=== PATIENT | female | born 1970 | race Caucasian/White ===

== ENCOUNTER 2016-11-21 12:50 | Emergency (ER) | payer OTHER ==
[~2016-11-21] VITALS: Ht 157.5 cm; Wt 81.6 kg
[~2016-11-21 12:50] MED LIST: FLE10 PO; HYDROCHLOROTH12.5 M2 PO; KCL 10% 2020 MEQ/15 GT; KCL20L PO; METFORMIN HCL500 MG PO; METOPROLOL SUCC50 M1 PO; MOBIC15 MG PO; OYSCO 500500 M1 PO; VITAMIN D32000 I2 PO
[2016-11-21 15:56] LABS: UA SPECIFIC GRAVITY 1.025 (1.005-1.035); microscopic required? YES; urine erythrocyte TRACE (NEGATIVE)
[2016-11-21 16:12] LABS: BASOPHIL % 0.6 % (0-2); PLATELET COUNT 238 x10^3mcL (130-400); RED CELL DISTRIBUTION WIDTH 14.2 % (11.5-14.5)
[2016-11-21 16:26] LABS: CALCIUM 8.5 mg/dL (8.5-10.1); CARBON DIOXIDE 26.9 mmol/L (21-32); CREATININE SERUM 1.1 mg/dL (0.6-1.0)
[2016-11-21 16:30] LABS: ALBUMIN 3.5 g/dL (3.4-5.0); BILIRUBIN TOTAL 0.4 mg/dL (0.20-1.00); CHOLESTEROL/HDL RATIO 4.4; FREE T4 0.8 ng/dL (0.76-1.46); FREE THYROXINE INDEX 2.5 ug/dL (1.4-4.5); T4(THYROXINE) 8.2 ug/dL (4.7-13.3); TOTAL PROTEIN, SERUM 7.2 g/dL (6.4-8.2)
[2016-11-21 16:36] LABS: T3 TOTAL 1.23 ng/mL
[2016-11-21 18:05] VITALS: BP 134/78
== END 2016-11-21 18:05 | disposition home or self-care (01) ==
LOC: ED 12:50
PROVIDERS: Specialist
DX: R10.31 Right lower quadrant pain (principal); R19.7 Diarrhea, unspecified; R11.0 Nausea; E11.9 Type 2 diabetes mellitus without complications; I10 Essential (primary) hypertension; Z79.84 Long term (current) use of oral hypoglycemic drugs; Z88.2 Allergy status to sulfonamides
CPT/HCPCS: 83880; 84439; J1885; J2405; J3010; J7030

== ENCOUNTER 2017-03-18 22:06 | Emergency (ER) | payer OTHER ==
[2017-03-18 22:54] LABS: BASOPHIL % 0.8 % (0-2); PLATELET COUNT 204 x10^3mcL (130-400); RED CELL DISTRIBUTION WIDTH 14.4 % (11.5-14.5)
[2017-03-18 23:07] LABS: CARBON DIOXIDE 25.7 mmol/L (21-32); CHLORIDE SERUM 107 mmol/L (98-107); CREATININE SERUM 0.8 mg/dL (0.6-1.0); GFR1 > 60 mL/min; GLUCOSE SERUM 98 mg/dL (74-106); POTASSIUM SERUM 4.3 mmol/L (3.5-5.1); SODIUM SERUM 144 mmol/L (136-145)
[2017-03-18 23:12] LABS: ALBUMIN 3.6 g/dL (3.4-5.0); ALKALINE PHOSPHATASE 82 U/L (46-116); ALT/SGPT 30 U/L (14-59); AST/SGOT 23 U/L (15-37); BILIRUBIN TOTAL 0.42 mg/dL (0.20-1.00); TOTAL PROTEIN, SERUM 7.4 g/dL (6.4-8.2)
[2017-03-19 01:15] VITALS: BP 140/90
== END 2017-03-19 01:15 | disposition home or self-care (01) ==
LOC: ED 22:06
PROVIDERS: Emergency Medicine
DX: R53.1 Weakness (principal); I10 Essential (primary) hypertension; Z79.84 Long term (current) use of oral hypoglycemic drugs
CPT/HCPCS: J2060; J7030; Q0092

== ENCOUNTER 2019-08-04 19:30 | Emergency (ER) | payer OTHER ==
[~2019-08-04] VITALS: Ht 160 cm; Wt 80.7 kg
[2019-08-04 19:45] VITALS: Ht 160 cm; Wt 80.7 kg
[2019-08-05 01:30] VITALS: BP 120/74
== END 2019-08-05 01:47 | disposition home or self-care (01) ==
LOC: ED 19:30
DX: M25.551 Pain in right hip (principal); I10 Essential (primary) hypertension; Z88.2 Allergy status to sulfonamides; Z90.710 Acquired absence of both cervix and uterus
CPT/HCPCS: J1885; Q0092